=== PATIENT | male | born 1995 | race Hispanic/Latino ===

== ENCOUNTER 2019-02-14 10:06 | Emergency (ER) | payer MEDICAID, OTHER | END 2019-02-14 11:10 | disposition home or self-care (01) | LOC: EDH 10:06 | DX: R19.7 Diarrhea, unspecified (principal); F41.9 Anxiety disorder, unspecified; F12.90 Cannabis use, unspecified, uncomplicated; Z72.0 Tobacco use | CPT/HCPCS: 87804 ==

== ENCOUNTER 2019-03-14 23:45 | Emergency (ER) | payer OTHER | END 2019-03-15 01:06 | disposition home or self-care (01) | LOC: EDH 23:45 | DX: J02.8 Acute pharyngitis due to other specified organisms (principal); B97.89 Other viral agents as the cause of diseases classified elsewhere; J45.909 Unspecified asthma, uncomplicated; F41.9 Anxiety disorder, unspecified; F12.90 Cannabis use, unspecified, uncomplicated; Z87.891 Personal history of nicotine dependence | CPT/HCPCS: 87880 ==